=== PATIENT | female | born 1965 | race Caucasian/White ===

== ENCOUNTER 2016-05-15 03:01 | Emergency (ER) | payer MEDICAID ==
[~2016-05-15] VITALS: Ht 160 cm; Wt 88.6 kg
[2016-05-15 03:05] VITALS: Ht 160 cm; Wt 88.6 kg
[2016-05-15 03:30] LABS: AADO2 Arterial 546.7 mmHg (7.0-24.0); Allen Test ACCEPTAB; Arterial Base Excess -14.6 mmol/L (-3.0-3); Arterial COHb 0.3 % (0.0-3.0); Arterial Fraction of Oxyhgb 93.9 % (93.0-99.0); Arterial HCO3 15.6 mmol/L (22.0-26.0); Arterial MetHb 0.5 % (0.0-1.5); Arterial Total Hemglobin 8.9 g/dl (12.0-18.0); MODE VENT - AC
[2016-05-15] MEDS ORDERED: NORepinephrine 8MG/250 ML (PMX 250 ML ONE ×2 (03:39)
[2016-05-15 03:43] LABS: ADD SCAN DIFF NO
--- NOTE | 2016-05-15 03:49 | RADRPT ---
PROCEDURE: XR Chest. CLINICAL INDICATION: Sepsis TECHNIQUE: Portable single view of the chest COMPARISON: None. FINDINGS: Endotracheal tube is seen in place with tip in the right mainstem bronchus. This should be retracte d 3 cm. Nasogastric tube courses into the stomach. Reduced lung volumes. Cardiomegaly and mild pu lmonary vascular congestion. Slightly increased left retrocardiac opacity which may be due to cardi omegaly or underlying airspace disease. No pleural effusion or overt congestive heart failure. Pro bable scarring of the right mid lung. IMPRESSION: Right mainstem bronchus intubation. The endotracheal tube should be retracted 3 cm. Reduced lung volumes. Cardiomegaly. Slightly increased left retrocardiac opacity may all be due to cardiomegaly although underlying airspace disease cannot be completely excluded. Lateral view coul d be obtained if indicated clinically. Results were called to the patient's nurse, Emelina, at 05/15/2016 3:47:39 AM RPTAT: [facility] Physician Singh Date Time Electronically viewed and signed by Physician Singh on 05/15/2016 03:49 PAO/
[2016-05-15 03:58] LABS: ABNORMAL IP MESSAGE 1; BASOPHILS % 0.2 % (0.0-2.0); EOSINOPHILS # 0.4 10^3/ul (0.0-0.5); HEMATOCRIT 29.4 % (37.0-47.0); HEMOGLOBIN 7.9 g/dl (12.0-16.0); LYMPHOCYTES # 11.3 10^3/ul (0.8-2.9); LYMPHOCYTES % 62.2 % (15.0-51.0); MEAN CORPUSCULAR HEMOGLOBIN 19.5 pg (29.0-33.0); MEAN CORPUSCULAR HGB CONC 26.9 g/dl (32.0-37.0); MEAN CORPUSCULAR VOLUME 72.4 fl (82.0-101.0); MEAN PLATELET VOLUME 9.6 fl (7.4-10.4); MONOCYTES % 5.3 % (0.0-11.0); NEUTROPHIL # 5.1 10^3/ul (1.6-7.5); NEUTROPHILS % 27.9 % (39.0-77.0); NUCLEATED RED BLOOD CELLS% 0.2 /100WBC (0.0-0.0); PLATELET COUNT 359 10^3/UL (140-415); RED BLOOD COUNT 4.06 10^6/ul (4.20-5.40); RED CELL DISTRIBUTION WIDTH 17.7 % (11.5-14.5); WHITE BLOOD COUNT 18.2 10^3/ul (4.8-10.8)
[2016-05-15 04:16] LABS: INR 1.13; PROTIME 14.5 Sec (12.2-14.2); PT RATIO 1.1
[2016-05-15 04:17] LABS: PARTIAL THROMBOPLASTIN TIME 26.4 Sec (25.0-35.0)
[2016-05-15 04:41] LABS: ALBUMIN 2.5 g/dl (3.3-4.9)
[2016-05-15 04:42] LABS: CHLORIDE 107 mmol/L (97-110); POTASSIUM 3.9 mmol/L (3.5-5.1); SODIUM 142 mmol/L (135-144)
[2016-05-15 04:44] LABS: ALBUMIN/GLOBULIN RATIO 1.08; ANION GAP 20 (8-16); ASPARTATE AMINO TRANSFERASE 175 IU/L (15-46); CARBON DIOXIDE 19 mmol/L (21-31); CREATININE 0.89 mg/dl (0.44-1.00); TOTAL PROTEIN 4.8 g/dl (6.1-8.1)
[2016-05-15 04:45] LABS: ALANINE AMINOTRANSFERASE 151 IU/L (13-69); ALKALINE PHOSPHATASE 67 IU/L (42-121); BLOOD UREA NITROGEN 9 mg/dl (7-20); CALCIUM 7.5 mg/dl (8.4-10.2); GLUCOSE 262 mg/dl (70-220)
--- NOTE | 2016-05-15 04:48 | RADRPT ---
PROCEDURE: XR Chest. CLINICAL INDICATION: Respiratory failure TECHNIQUE: Portable single view of the chest COMPARISON: 05/15 FINDINGS: The endotracheal tube has been retracted and is now in good position with tip at the level of clavic les. Lung volumes remain reduced. Nasogastric tube remains in place. Cardiomegaly and pulmonary v ascular congestion with left retrocardiac opacity, unchanged. IMPRESSION: Endotracheal tube now in good position. RPTAT: [facility] Dalia Joseph Physician Date Time Electronically viewed and signed by Dalia Joseph Physician on 05/15/2016 04:47 LE/
--- NOTE | 2016-05-15 04:49 | ERA ---
ER Documentation Chief Complaint Date/Time DATE: 05/15/16 TIME: 04:41 Chief Complaint Found unconscious at home by family,LORA RA 90 HPI The patient is a 50-year-old female, presenting to the ER because she was found unconscious at home, unknown downtime. When the EMS arrived, she had a thready pulse, then became bradycardia then asystole. She was then treated with epinephrine 1 mg IV with good response. Last known well time was unknown. The history is obtained from the systems management consultant, no family is in the ER. Accu-Chek was 168 per EMS Past medical/surgical history/social history/review of system: Unable to obtain due to her condition ROS All systems reviewed and are negative except as per history of present illness. Allergies Allergies: Coded Allergies: No Known Allergy (Unverified , 05/15/16) PMhx/Soc Medical and Surgical Hx: pt denies Medical Hx, pt denies Surgical Hx Smoking Status: Unknown if ever smoked Physical Exam Vitals Vital Signs Date Time Temp Pulse Resp B/P Pulse Ox O2 Delivery O2 Flow Rate FiO2 05/15/16 03:05 95.5 117 15 131/104 71 05/15/16 03:05 85 20 100 100 Physical Exam Const: Acute severe respiratory distress. Head: Atraumatic. Eyes: Normal Conjunctiva. Pupils fixed and dilated ENT: Normal External Ears, Nose and Mouth. Neck: Full range of motion. No meningismus. Resp: Clear to auscultation bilaterally anteriorly laterally Cardio: Regular rate and rhythm, Abd: Soft, distended, normal bowel sounds, non tender. Skin: No petechiae or rashes. Back: No ecchymosis or crepitus Ext: No cyanosis, or edema. Neur: Unable to obtain due to her condition Result Diagram: 05/15/16 0334 05/15/16 0354 Results 24 hrs Laboratory Tests Test 05/15/16 03:07 05/15/16 03:34 05/15/16 03:54 05/15/16 04:05 Arterial Blood HCO3 15.6mmol/L 15.9mmol/L Arterial Blood Base Excess -14.6mmol/L -8.1mmol/L Arterial Blood Oxygen Saturation 94.7mmHG 99.5mmHG Mendoza Test ACCEPTAB ACCEPTAB Arterial Blood Gas Puncture Site Right Radial Right Radial Arterial Blood Carboxyhemoglobin 0.3% 0.3% Arterial Blood Date Drawn 05/15/2016 3:25:04 AM 05/15/2016 5:00:18 AM Arterial Blood Methemoglobin 0.5% 0.3% Arterial Blood pCO2 (Temp correct) 59.4mmhg 27.9mmhg Arterial Blood pH (Temp corrected) 7.036 7.375 Arterial Blood pO2 (Temp corrected) 106.9mmHG 315.6mmHG Blood Gas A-a O2 Differential 546.7mmHg 369.5mmHg Blood Gas Actual Respiration Rate 20 26 Blood Gas Critical Value Read Back Julio César HUERTA MD Blood Gas Modality VENT - AC VENT - AC Blood Gas Notified Time 05/15/2016 3:29:40 AM 05/15/2016 5:03:50 AM Blood Gas Notified Whom MG MG Blood Gas Respiration Rate 20.0 26.0 Blood Gas Specimen Source Blood arterial Blood arterial Blood Gas Temperature 37.0C 37.0C Blood Gas Tidal Volume 500.0mL 500.0mL FiO2 100.0% 100.0% Oxyhemoglobin Percent 93.9% 98.9% Total Hemoglobin 8.9g/dl 10.0g/dl Activated Partial Thromboplast Time 26.4Sec Basophils # 0.010^3/ul Basophils % 0.2% Eosinophils # 0.410^3/ul Eosinophils % 2.0% Hematocrit 29.4% Hemoglobin 7.9g/dl INR International Normalized Ratio 1.13 Lactic Acid Level 9.3mmol/L Lymphocytes # 11.310^3/ul Lymphocytes % 62.2% Mean Corpuscular Hemoglobin 19.5pg Mean Corpuscular Hemoglobin Concent 26.9g/dl Mean Corpuscular Volume 72.4fl Mean Platelet Volume 9.6fl Monocytes # 1.010^3/ul Monocytes % 5.3% Neutrophils # 5.110^3/ul Neutrophils % 27.9% Nucleated Red Blood Cells # 0.010^3/ul Nucleated Red Blood Cells % 0.2/100WBC Platelet Count 25116^3/UL Prothrombin Time 14.5Sec Prothrombin Time Ratio 1.1 Red Blood Count 4.0610^6/ul Red Cell Distribution Width 17.7% White Blood Count 18.210^3/ul Acetaminophen Level < 10.0ug/ml Alanine Aminotransferase (ALT/SGPT) 151IU/L Albumin 2.5g/dl Albumin/Globulin Ratio 1.08 Alkaline Phosphatase 67IU/L Anion Gap 20 Aspartate Amino Transf (AST/SGOT) 175IU/L Blood Urea Nitrogen 9mg/dl Calcium Level 7.5mg/dl Carbon Dioxide Level 19mmol/L Chloride Level 107mmol/L Creatinine 0.89mg/dl Direct Bilirubin 0.00mg/dl Ethyl Alcohol Level < 10.0mg/dl Globulin 2.30g/dl Glucose Level 262mg/dl Indirect Bilirubin 0.0mg/dl Potassium Level 3.9mmol/L Salicylates Level < 1.0mg/dl Serum HCG, Qualitative NEGATIVE Sodium Level 142mmol/L Total Bilirubin 0.0mg/dl Total Protein 4.8g/dl Troponin I 0.218ng/ml Current Medications Medications (Trade) Dose Ordered Sig/Concetta Route PRN Reason Start Time Stop Time Status Last Admin Dose Admin Norepinephrine 250 ml @ ud STK-MED ONCE .ROUTE 05/15/16 03:39 05/15/16 03:40 DC Norepinephrine 250 ml @ ud STK-MED ONCE .ROUTE 05/15/16 03:39 05/15/16 03:40 DC Vancomycin HCl 250 ml @ 125 mls/hr ONCE IVPB 05/15/16 05:30 05/15/16 07:29 05/15/16 05:30 Piperacillin Sod/ Tazobactam Sod (Zosyn 3.375gm/ 100 ml (Pmx)) 100 ml @ 200 mls/hr ONCE ONCE IVPB 05/15/16 05:30 05/15/16 05:59 05/15/16 05:31 Mannitol 50 gm 50 gm ONCE ONCE IV* 05/15/16 05:30 05/15/16 05:31 DC Levetiracetam/ Sodium Chloride (Keppra Iv/NS) 105 ml @ 420 mls/hr ONCE ONCE IVPB 05/15/16 05:30 05/15/16 05:44 05/15/16 05:31 Nimodipine (Nimotop) 60 mg ONCE ONCE NGT 05/15/16 05:30 05/15/16 05:31 DC Procedures/[place] [id number] Radiology Main Line: [phone] DIAGNOSTIC IMAGING REPORT Patient: RONNIE MORSE : 1965 Age: 50 Sex: F MR #: [id number] DOS: 05/15/16 0307 Ordering MD: CARLOS HUERTA MD Location: E/R Room/Bed: PROCEDURE: XR Chest. CLINICAL INDICATION: Sepsis TECHNIQUE: Portable single view of the chest COMPARISON: None. FINDINGS: Endotracheal tube is seen in place with tip in the right mainstem bronchus. This should be retracted 3 cm. Nasogastric tube courses into the stomach. Reduced lung volumes. Cardiomegaly and mild pulmonary vascular congestion. Slightly increased left retrocardiac opacity which may be due to cardiomegaly or underlying airspace disease. No pleural effusion or overt congestive heart failure. Probable scarring of the right mid lung. IMPRESSION: Right mainstem bronchus intubation. The endotracheal tube should be retracted 3 cm. Reduced lung volumes. Cardiomegaly. Slightly increased left retrocardiac opacity may all be due to cardiomegaly although underlying airspace disease cannot be completely excluded. Lateral view could be obtained if indicated clinically. Results were called to the patient's nurse, Emelina, at 05/15/2016 3:47:39 AM RPTAT: [facility] Physician Singh Date Time Electronically viewed and signed by Dalia Joseph Physician on 05/15/2016 03 :49 LE/ CC: CARLOS HUERTA MD [place] [id number] Radiology Main Line: [phone] DIAGNOSTIC IMAGING REPORT Patient: RONNIE MORSE : 1965 Age: 50 Sex: F MR #: [id number] DOS: 05/15/16 0000 Ordering MD: CARLOS HUERTA MD Location: E/R Room/Bed: PROCEDURE: XR Chest. CLINICAL INDICATION: Respiratory failure TECHNIQUE: Portable single view of the chest COMPARISON: 05/15 FINDINGS: The endotracheal tube has been retracted and is now in good position with tip at the level of clavicles. Lung volumes remain reduced. Nasogastric tube remains in place. Cardiomegaly and pulmonary vascular congestion with left retrocardiac opacity, unchanged. IMPRESSION: Endotracheal tube now in good position. RPTAT: [facility] Dalia Joseph, Physician Date Time Electronically viewed and signed by Dalia Joseph, Physician on 05/15/2016 04 :47 LE/ CC: CARLOS HUERTA MD [place] [id number] Radiology Main Line: [phone] DIAGNOSTIC IMAGING REPORT Patient: RONNIE MORSE : 1965 Age: 50 Sex: F MR #: [id number] DOS: 05/15/16 0307 Ordering MD: CARLOS HUERTA MD Location: E/R Room/Bed: PROCEDURE: CT Brain without contrast. CLINICAL INDICATION: Cardiac arrest TECHNIQUE: Axial images from the skull base through the vertex without IV contrast. Multiplanar reformatted images were made. Images were reviewed on a PACS workstation. The CTDIvol is 43.95 mGy and the DLP is 720.23 mGycm. One or more of the following dose reduction techniques were used: automated exposure control, adjustment of the mA and/or kV according to patient size, or use of iterative reconstruction technique. COMPARISON: None. FINDINGS: Diffuse subarachnoid hemorrhage is seen, most prominent in the left suprasellar cistern. The ventricles appear somewhat compressed suggesting increased intracranial pressure. No midline shift is seen. There may be a small amount of blood in the fourth ventricle. No definite evidence for territorial infarction. No intracranial mass is seen. Fluid is seen in the nasal cavity and ethmoids. IMPRESSION: Diffuse subarachnoid hemorrhage and possible small amount of blood in the fourth ventricle. Probable increased intracranial pressure without midline shift. Ruptured aneurysm is suspected. Results were called to Carlos Abdi at 05/15/2016 4:54:05 AM Critical results: Intracranial hemorrhage RPTAT: [facility] Physician Singh Date Time Electronically viewed and signed by Dalia Joseph Physician on 05/15/2016 04 :55 LE/ CC: CARLOS HUERTA MD EKG: Read by emergency physician Rate/Rhythm: Sinus bradycardia 56 beats/min QRS, ST, T-waves: No ST elevation, no T inversion, and anterior and lateral ST depression Impression: Abnormal EKG Endotracheal Intubation by me: Pre assessment performed. See preceding note for details. Pre-oxygenation performed with 100% oxygen RSI: Performed w/o complication or hypoxic events. Medications as ordered. Blade: [place] scope ET Tube: 7.5 cm Depth: 23 cm at the lip Intubation confirmed by colorimetric CO2, equal breath sounds, quiet over the stomach. Central Line Placement by me: Patient consented, sterilely draped, full prep, gown, glove, mask, time out performed. Anesthesia: 1% lidocaine locally Location: Right femoral vein Device: Multiple lumen Technique: Seldinger technique. Secured with suture. Results: Venous return from all ports with easy saline flush. No complications. Guide wire retrieved and disposed of. [ED Ultrasound: Central line placed by me using concurrent ultrasound guidance. Real time image archived in the medical record confirms vascular anatomy. Critical Care: Time: 75 minutes excluding all billable procedures. Treatments/Evaluations: Close monitoring and treatment of unstable vital signs, cardiorespiratory, and neurologic status, while maintaining tight balance of fluid, respiratory, and cardiac interventions. MEDICAL MAKING DECISION: The patient is a 50-year-old female, presenting with acute subarachnoid hemorrhage, acute a systole, acute septic shock, acute troponin elevation, acute hyperglycemia. When she came in, her pupils are already fixed and dilated. She went to [facility] at 3:21 AM, she was treated with epinephrine 1 mg IV and 1 ampule sodium bicarb IV with good response at 3:25 AM with blood pressure of 140/77. She became hypotensive and required Levophed drip She was treated with nimodipine 60 mg via NG tube, head of bed at 30, mannitol 50 g IV, Keppra 500 mg IV due to acute subarachnoid hemorrhage Consultation: I discussed the patient with the on-call neurosurgeon Dr. Adams at 5 AM who recommended transfer the patient and agreed with the aforementioned treatment I discussed the patient with Dr. Rosado from [facility], who was made aware of the lab, the treatment, the patient condition. He accepted the transfer at 5:15 AM Admit MDM: Patient's infectious symptoms have not stabilized and the patient is at risk of rapid decompensation. The patient will be admitted for careful hydration, antibiotic therapy, and infectious source control. Severe Sepsis criteria: Infectious source: Unknown End organ damage indicated by: Lactate > 2.0 mmol/L Hypotension (SBP < 90 or >40 mmHG drop or MAP < 65) Acute Resp Failure (sat < 92% w/o oxygen) Sepsis Management: Time of recognition of severe sepsis/septic shock: 3:45 am Within 3 hours of recognition: Blood cultures x 2 before broad-spectrum antibiotics: Yes 30 ml/kg NS bolus completed Initial lactate 9.3 Repeat lactate pending Septic Shock Assessment: Any lactic acid > 4.0 yes Persistent hypotension (SBP < 90 or 40 mmHg drop, MAP < 65) despite 30 mL/kg IV fluid bolusno Volume Re-assessment for Septic Shock (post 30 ml/kg bolus): Temp, BP, HR, RR, Pox Heart regular rate & rhythm Lungs no crackles Skin Warm & dry & pale Cap Refill less than 2 seconds Peripheral pulses radially present Persistent Hypotension Treatment: Comfort care no Central line right femoral vein Vasopressor started Norepinehrine I considered further perfusion assessment with CVP measurement, SCVO2, bedside ultrasound volume assessment, passive leg raise, trial of further fluid bolus. And proceeded with Departure Diagnosis: Primary Impression: Subarachnoid hemorrhage Additional Impressions: Cardiac arrest Septic shock Elevated troponin Hyperglycemia Anemia Condition: Critical Comments I discussed the findings with the patient. I discussed the on-call neurosurgeon at [facility] Dr Rosado who was made aware of the lab, the treatment, the patient condition. The patient is transferred to [facility] via ambulance CARLOS HUERTA MD May 15, 2016 04:49
--- NOTE | 2016-05-15 04:56 | RADRPT ---
PROCEDURE: CT Brain without contrast. CLINICAL INDICATION: Cardiac arrest TECHNIQUE: Axial images from the skull base through the vertex without IV contrast. Multiplanar r eformatted images were made. Images were reviewed on a PACS workstation. The CTDIvol is 43.95 mGy and the DLP is 720.23 mGycm. One or more of the following dose reduction techniques were used: auto mated exposure control, adjustment of the mA and/or kV according to patient size, or use of iterativ e reconstruction technique. COMPARISON: None. FINDINGS: Diffuse subarachnoid hemorrhage is seen, most prominent in the left suprasellar cistern. The ventri cles appear somewhat compressed suggesting increased intracranial pressure. No midline shift is see n. There may be a small amount of blood in the fourth ventricle. No definite evidence for territor ial infarction. No intracranial mass is seen. Fluid is seen in the nasal cavity and ethmoids. IMPRESSION: Diffuse subarachnoid hemorrhage and possible small amount of blood in the fourth ventricle. Probabl e increased intracranial pressure without midline shift. Ruptured aneurysm is suspected. Results were called to Carlos Abdi at 05/15/2016 4:54:05 AM Critical results: Intracranial hemorrhage RPTAT: HLBE Physician Singh Date Time Electronically viewed and signed by Physician Singh on 05/15/2016 04:55 PAO/
[2016-05-15 05:00] VITALS: BP 130/104; PULSE 141; RESP 26
[2016-05-15 05:04] LABS: AADO2 Arterial 369.5 mmHg (7.0-24.0); Allen Test ACCEPTAB; Arterial Base Excess -8.1 mmol/L (-3.0-3); Arterial COHb 0.3 % (0.0-3.0); Arterial Fraction of Oxyhgb 98.9 % (93.0-99.0); Arterial HCO3 15.9 mmol/L (22.0-26.0); Arterial MetHb 0.3 % (0.0-1.5); MODE VENT - AC
[2016-05-15 05:12] LABS: ACETAMINOPHEN < 10.0 ug/ml (10.0-30.0); ETHANOL < 10.0 mg/dl; SALICYLATE < 1.0 mg/dl (5.0-30.0)
[2016-05-15 05:14] LABS: TROPONIN-I 0.218 ng/ml (0.00-0.12)
[2016-05-15] MEDS ORDERED: MANNITOL 25% 50 ML INJ IV* ONE (05:30)
[2016-05-15] MEDS ORDERED: LEVETIRACETAM IV 500 MG in SOD CHLORIDE 0.9% 100 ML IVPB ONE (05:30)
[2016-05-15] MEDS ORDERED: VANCOMYCIN 1 GM (PMX) 250 ML IVPB SCH (05:30)
[2016-05-15] MEDS ORDERED: PIPER-TAZO 3.375 GM IV (PMX) 100 ML IVPB ONE (05:30)
[2016-05-15] MEDS ORDERED: SOD CHLORIDE 0.9% IV ONE (06:00)
[2016-05-15] MEDS ORDERED: NA BICARBONATE 8.4% 50 ML SYG ONE (07:00)
[2016-05-15] MEDS ORDERED: EPINEPHrine 0.1 MG/ML SYG ONE (07:00)
== END 2016-05-15 06:50 | disposition short-term general hospital (02) ==
LOC: E/R 03:01
DX: I60.9 Nontraumatic subarachnoid hemorrhage, unspecified (principal); I46.9 Cardiac arrest, cause unspecified; R65.21 Severe sepsis with septic shock; A41.9 Sepsis, unspecified organism; R73.9 Hyperglycemia, unspecified; D64.9 Anemia, unspecified; R40.2112 Coma scale, eyes open, never, at arrival to emergency department; R40.2212 Coma scale, best verbal response, none, at arrival to emergency department; R40.2312 Coma scale, best motor response, none, at arrival to emergency department
CPT/HCPCS: 31500; 36415; 36556; 36600; 70450; 71010; 76937; 80053; 80306; 82803; 83605; 84484; 84703; 85025; 85610; 85730; 87040; 93005; 94002; 96374; 96375; J0171; J1953; J2150; J2543; J3370; J7030; Z7502; Z7610